=== PATIENT | female | born 1935 | race Asian ===

== ENCOUNTER 2017-05-06 11:00 | Emergency (ER) | payer MEDICARE ==
[~2017-05-06] VITALS: Ht 154.9 cm; Wt 81.8 kg
[2017-05-06 11:05] VITALS: BP 189/111; PULSE 84; RESP 15; O2SAT 97
--- NOTE | 2017-05-06 11:30 | ED.REPORT ---
HPI-General Illness Date of Service May 06, 2017 ED Provider: Roc Fang MD The pt is a 81 y/o female, visiting from [facility], with a hx of HTN and hypothyroid who presents to the ED complaining of non-radiating, stabbing neck pain that she woke up with 4 days ago. Her pain is exacerbated with any neck movement, including rotation, flexion and extension. She has been unable to sleep due to the severe pain. The pt was prescribed cyclobenzaprine at [facility] urgent care yesterday which did not improve her sx. She denies any trauma to the neck as well as any signs of recent infection. She also denies difficulty swallowing. The pt also reports right leg pain this morning as well as transient dizziness when she gets up after lying down for the last few days. Nursing Notes Stated Complaint: PAIN IN BACK,NECK AND SHOULDER Chief Complaint: General Complaint Nursing Notes Reviewed: Yes (Ziebel, GAMEVIL not reconciled) Allergies: Coded Allergies: codeine (Verified Adverse Reaction, Unknown, does not make me feel good, ) Scheduled PRN Acetaminophen (Acetaminophen) 500 Mg Tablet 1,000 MG PO TID PRN PRN For Pain Docusate Sodium (Colace) 100 Mg Capsule 200 MG PO DAILY PRN PRN For Constipation oxyCODONE (oxyCODONE) 5 Mg Tablet 2.5-5 MG PO TID PRN PRN For Pain General Time Seen by MD: 11:27 Chief Complaint Other (neck pain) Hx Obtained From: Patient Arrived By: Walk-in Sudden in Onset?: Yes Onset Occurred: 4 days ago Symptom Duration: Since onset Location: : Neck Quality: Stabbing Radiation: : Does not radiate Severity: Current: Severe Severity: Maximum: Severe Recent Healthcare: Recent doctor visit Similar Sx Previous: No Past Medical History Past Medical History HTN hypothyroid Past Surgical History Reports: Cholecystectomy Smoking History Never Smoker Social History Other Social History: Good social support Ambulatory Status Independent Review of Systems Full Review of Systems GI: Denies: Dysphagia Musculoskeletal: Reports: Extremity pain (right leg pain), Neck pain Neurologic: Reports: Dizziness Complete sys rev & neg: except as marked. Physical Exam Vital Signs Vital Signs Date Time Temp Pulse Resp B/P Pulse Ox O2 Delivery O2 Flow Rate FiO2 05/06/17 13:18 36.9 68 20 125/80 93 Room Air 05/06/17 11:05 37.0 84 15 189/111 97 Room Air Initial VS: Reviewed, Vital signs abnormal Head / Eyes: Atraumatic, Normocephalic Cardiovascular: Intact distal pulses Extremities: Vascular intact, Neuro intact, No swelling, No tenderness Skin: Warm, Dry, No cyanosis General/Constitutional: Awake, Alert, No acute distress Appearance / Presentation: Positive: Uncomfortable Normal voice. Neck: Atraumatic, No adenopathy Neutral neck position Reduced range of motion. No rotation, extention and flexion. No neck mass or erythema Respiratory / Chest: Atraumatic, No respiratory distress, No stridor Upper Extremities Upper Extremity / MS: Atraumatic, Full range of motion, No swelling, Non-tender , No erythema, No deformity, Neurologic intact, Vascular intact Lower Extremity / Pelvis / MS: Atraumatic, Full range of motion, No swelling, Non-tender, No deformity, Neurologic intact, Vascular intact Neurologic: Oriented X3, Speech NL, No motor deficits, No sensory deficits Interpretation & Diagnostics CT C-Spine Interpretation IMPRESSION: 1. No fracture. 2. Degenerative disc disease, uncovertebral hypertrophy and facet arthropathy in cervical spine as described. 3. Osteopenia. Dictated by: Josseline Moore M.D. on 05/06/2017 at 11:28 Approved by: Josseline Moore M.D. on 05/06/2017 at 11:33 Study type: CT no contrast Interpretation / Wet Read by: Interpret - Radiologist Re-Eval/Medical Decision Med Decision/Clinical Course This is a pleasant 81-year-old female visiting from [facility] staying with family she said she slept awkwardly and woke up complaining of some neck soreness and stiffness 4 days ago. She reports flexion, or rotation, or extension worsens the pain. However there has been no specific trauma, she has no neurologic symptoms of numbness or weakness, but just persistent pain that has been very uncomfortable for her. She was seen at urgent care and given cyclobenzaprine, but reports it is not helped. Has prior history of symptoms or symptoms, and has no additional complaints. Exam she is hypertensive, and states that a month ago she saw her primary care physician started her on losartan, but is not always taking it. She does have decreased range of motion of the neck, but has a normal neurologic exam with no radiculopathy or signs of a focal neurologic deficit. Additionally there are no findings of an infectious etiology, voice is normal, no swelling or drooling, she has no difficulty with swallowing. There are no clinical signs of meningismus. She denies prior history rheumatoid arthritis or known arthropathy. Given her age, CT imaging was obtained, was negative for acute disease and a dose of pain medicine was given-with marked improvement. I am not finding other dangerous pathology. Plan is discharge on Tylenol, some when necessary oxycodone, and discontinuation of the cyclobenzaprine that did not help. I have also provided Colace. I counseled on the sedating side effects of opiates. I recommended warm packs. Expect symptoms to improve with time. Additionally I have recommended strongly the patient go ahead and take her blood pressure medication, and that she does need a follow-up for blood pressure recheck with her primary care physician-given the bilateral musculoskeletal nature the symptoms I am not finding evidence of carotid dissection or other pathology or need for contrast imaging. At this point everything points to the benign musculoskeletal etiology. Source of Hx: Old records Time of Eval: 12:56 Patient Status: Condition improved Re-Evaluation/Progress Note: Rechecked pt. The pt reports feeling better. Discussed imaging results, diagnosis and plan to discharge. Pt understands and agrees with the plan. F/U instruction and RTER warning given. All questions addressed. Differential Diagnosis: Negative: Abdominal pain, Acute coronary syndrome, Allergies, Diabetes mellitus, Drug dependence, G-tube repair/replacement, Laceration Counseled Regarding: Diagnosis, Need for follow-up, When/why to return to ED Discharge & Departure Primary Impression: Cervical muscle strain Encounter type: initial encounter Qualified Code: S16.1XXA - Strain of muscle, fascia and tendon at neck level, initial encounter Disposition: Home Discharge Condition All VS Reviewed: Yes Condition: Stable Additional Instructions: 1. The CT scan of the neck was normal. 2. Pain appears to be musculoskeletal, and it is expected to improve with time. 3. Take Tylenol 1000 mg 3 times a day for pain. 4. Stop taking the muscle relaxant cyclobenzaprine that was not helping. 5. For pain, if still severe despite Tylenol, you can also take the oxycodone 5mg 1/2-1 tab up to 3 times a day as needed. Note: This medication is a strong pain medicine that contains a narcotic. It causes drowsiness, and can cause constipation. No driving for at least 4-6 hours after taking. Be very careful with her activities after taking. I recommend taking a stool softener daily as long as you are needing this medicine. 6. I recommend applying warm packs to the neck and perform gentle range of motion's exercises daily. 7. Your blood pressure was again very elevated today, make sure that you take your blood pressure medicine-and do follow up with your physician in [facility] when you return for a recheck. 8. Return if new or worsening symptoms occur. Referrals: OTHER,PHYSICIAN Scribe Attestation Portions of this note were transcribed by Chandu Hernandez. I,, personally performed the history, physical exam and medical decision-making;I reviewed and confirmed the accuracy of the information in the transcribed note. Signed by Carolyn Garcia. 05/06/17 Roc Fang MD May 06, 2017 11:30 Chandu Hernandez May 06, 2017 11:43
[2017-05-06] MEDS ORDERED: Ondansetron 8 mg ODT Tablet PO ONE (11:45)
[2017-05-06] MEDS ORDERED: HYDROmorphone 1 mg/mL Inj IM ONE (11:45)
--- NOTE | 2017-05-06 12:35 | DRSVH ---
PROCEDURE: CT CERVICAL SPINE WITHOUT CONTRAST ([id number]) INDICATIONS: neck pain after fall. TECHNIQUE: Noncontrast 3 mm thick sections acquired from the skull base to the T4 level. Sagittal and coronal r eformats were then constructed. For radiation dose reduction, the following was used: automated exp osure control, adjustment of mA and/or kV according to patient size. COMPARISON: None. FINDINGS: Image quality: Excellent. Bones: No fractures or dislocations. There is minimal grade 1 anterolisthesis of C4 over C5. Modera te degenerative disc disease is present at C5-C6 and C6-C7. There is uncovertebral hypertrophy at C5- C6 and T6-T7. Mild central canal stenosis at C5-C6 and C6-7. Bilateral facet arthropathy is present, most severe at C2-C3 on the left. Visualized superior ribs are intact. There is generalized osteopen ia. Soft tissues: Prevertebral soft tissues are normal in thickness. No paravertebral hematomas. No ap ical pneumothoraces. IMPRESSION: 1. No fracture. 2. Degenerative disc disease, uncovertebral hypertrophy and facet arthropathy in cervical spine as de scribed. 3. Osteopenia. Dictated by: Josseline Moore M.D. on 05/06/2017 at 11:28 Approved by: Josseline Moore M.D. on 05/06/2017 at 11:33
[2017-05-06] MEDS ORDERED: ACET-171 PO (13:04)
[2017-05-06] MEDS ORDERED: OXYC5TAB72 PO (13:04)
[2017-05-06] MEDS ORDERED: DOCU-41 PO (13:04)
[2017-05-06 13:18] VITALS: BP 125/80; PULSE 68; RESP 20; O2SAT 93
== END 2017-05-06 13:10 | disposition home or self-care (01) ==
LOC: SED 11:00
DX: S16.1XXA Strain of muscle, fascia and tendon at neck level, initial encounter (principal); X50.9XXA Other and unspecified overexertion or strenuous movements or postures, initial encounter; Y93.89 Activity, other specified; Y99.8 Other external cause status; I10 Essential (primary) hypertension; E03.9 Hypothyroidism, unspecified; Z88.5 Allergy status to narcotic agent
CPT/HCPCS: 72125; 96372; 99284; J1170